=== PATIENT | male | born 1990 | race Caucasian/White ===

== ENCOUNTER 2021-08-04 11:27 | Emergency (ER) | payer SELFPAY ==
[2021-08-04 12:00] VITALS: BP 166/91; PULSE 96; RESP 16; TEMP 36.8; O2SAT 100; BMI 25.8
--- NOTE | 2021-08-04 12:00 | XR_ITS ---
PROCEDURE: XR RIBS RT 2V CLINICAL INDICATION: FALL COMPARISON: No exams were available for comparison FINDINGS: Frontal view of the chest shows no acute finding. Multiple views of the right ribs show no obvious displaced rib fracture or other significant anomaly. IMPRESSION: No acute findings. Dictated by: Vinny Carpio MD 08/04/2021 13:38 Vinny Carpio MD in [place] 08/04/2021 13:38
--- NOTE | 2021-08-04 12:00 | XR_ITS ---
PROCEDURE: XR LUMBAR SPINE 2-3V CLINICAL INDICATION: FALL COMPARISON: No exams were available for comparison FINDINGS: Brain minimal lumbar curvature convex left. Slight reversal of thoracolumbar lordosis. No acute fracture or dislocation. IMPRESSION: No acute findings. Dictated by: Vinny Carpio MD 08/04/2021 13:37 Vinny Carpio MD in [place] 08/04/2021 13:37
--- NOTE | 2021-08-04 12:46 | HMH.EDUTC ---
[facility] [place] Impression: Rib contusion Qualifiers: Encounter type: initial encounter Laterality: right Qualified Code(s): S20.211A - Contusion of right front wall of thorax, initial encounter Low back pain Qualifiers: Chronicity: unspecified Back pain laterality: right Sciatica presence: without sciatica Qualified Code(s): M54.50 - Low back pain, unspecified Disposition: Home, Self-Care Condition on Discharge: Good Instructions: Low Back Pain, DI for Low Back Pain, DI for Rib Contusion Additional Instructions: *Etodolac kavin 8 hours with meal as needed for pain/inflammation *Remember you had a Toradol shot in the clinic today, which is similar to Etodolac so do not start for the next 8 hours *Not additional anti-inflammatory like Ibuprofen motrin, aleve, advil with the above amount of Etodolac. You can still take Tylenol every 4 hours as needed if you need something else for pain *Ice 20 minutes every 2 hours for the first 48 hours after the initial injury followed by moist heat every 20 minutes 3-4 times a day to affected area *Muscle relaxer every 12 hours as needed for muscle spasms but remember, it WILL cause drowsiness You cannot take it and drive, operate machinery or care for small children. *Keep this area active, no movement leads to more stiffness, However take it easy and avoid heavy lifting pushing or pulling *Follow up with you family doctor if no improvement for further treatment Prescriptions: Etodolac 200 mg PO Q8HP PRN #20 cap PRN Reason: Moderate Pain Transmission Status: Received by [facility] #[id number] methylPREDNISolone [Medrol 4mg tab] 4 mg PO DIRECTED #21 tab Transmission Status: Received by [facility] #[id number] methocarbamoL [Methocarbamol] 750 mg PO BID PRN #10 tab PRN Reason: Muscle Spasm Transmission Status: Received by [facility] #[id number] Referrals: Provider,Referral, [Primary Care Provider] - As needed Time of Disposition: 13:43 Medical Decision Making - Cuate Inquiry Pt receiving controlled substance: No Cuate was queried for this patient: No Vital Signs: 08/04/21 12:00 08/04/21 14:18 Temperature 98.3 F 98.3 F Temperature Source Oral Pulse Rate 96 H Pulse Rate [Left] 96 H Respiratory Rate 16 16 Blood Pressure 166/91 H Blood Pressure [Right Arm] 166/91 H Blood Pressure Mean [Right Arm] 116 02 Sat by Pulse Oximetry 100 Orders (Tests/Meds): ED MEDICATIONS Discontinued Medications Generic Name Dose Route Start Last Admin Trade Name Tommy PRN Reason Stop Dose Admin Ketorolac Tromethamine 60 mg 08/04/21 13:41 08/04/21 13:49 Ketorolac 60mg/2ml Vial IM 08/04/21 13:42 60 mg ONCE ONE Administration Methylprednisolone Sodium Succinate 125 mg 08/04/21 13:41 08/04/21 13:49 Methylprednisolone Sod Succ 125mg Vial IM 08/04/21 13:42 125 mg ONCE ONE Administration - Radiology Data #1 Image(s): L-Spine Image Reviewed: Yes I have reviewed radiologist's interpretation No acute findings. #2 Image(s): Chest (with right ribs) Image Reviewed: Yes I have reviewed radiologist's interpretation No acute findings. [facility] [place] - General Stated complaint: AO fall 08/02 back pain Time Seen by Provider: 08/04/21 12:46 Mode of Arrival: Ambulatory Source of Information: Patient Limitations: No Limitations Description of Symptoms (Recalled from Triage Doc. by RN): pt states he fell down a step on 08/02. pt c/o of lower R sided back pain and lower R sided rib pain. HEENT Symptoms (Recalled from RN notes): No Resp Symptoms (Recalled from RN notes): No Skin Symptoms (Recalled from RN notes): No MS Symptoms (Recalled from RN notes): Yes Functional Status (Recalled from RN notes): na - History of Present Illness Provider Complaint: Patient state that on Tuesday he was walking down the steps when he slipped and fell and landed on his left side on the steps States that ever since he has been having pain
[2021-08-04 14:18] VITALS: BP 166/91; PULSE 96; RESP 16; TEMP 36.8
== END 2021-08-04 14:20 | disposition home or self-care (01) ==
PROVIDERS: Emergency Provider Nurse Practitioner
DX: S20.211A Contusion of right front wall of thorax, initial encounter (principal); M54.50 Low back pain, unspecified; W01.0XXA Fall on same level from slipping, tripping and stumbling without subsequent striking against object, initial encounter
CPT/HCPCS: 71100; 72100; 96372; 99202; G0463

== ENCOUNTER 2022-03-06 22:23 | Emergency (ER) | payer SELFPAY ==
--- NOTE | 2022-03-06 22:48 | HMH.EDGENADL ---
ED Disposition Clinical Impression: Viral syndrome Disposition: Home, Self-Care Condition on Discharge: Good Instructions: DI for Viral Syndrome Referrals: Provider,Referral, [Primary Care Provider] - - Critical Care Critical Care Time: No Attestation: On , the high probability of a clinically significant, sudden or life threatening deterioration of the following system(s) required my full and direct attention, intervention and personal management. The time I documented below is in addition to time spent performing reported procedures but includes the following listed in this critical care notation. Medical Decision Making - Medical Records Medical records reviewed: Yes: I reviewed the patient's medical records. - Cuate Inquiry Pt receiving controlled substance: No Vital Signs: 03/06/22 23:39 Temperature 98.7 F Temperature Source Oral Pulse Rate [Apical] 89 Respiratory Rate 18 Blood Pressure [Right Arm] 139/110 H Blood Pressure Mean [Right Arm] 119 Blood Pressure Source [Right Arm] Automatic Cuff Blood Pressure Position [Right Arm] Sitting 02 Sat by Pulse Oximetry 97 Oxygen Delivery Method Room Air Medical Decision Narrative: Patient is a 31-year-old healthy male presenting with a chief complaint of gastrointestinal symptoms which have now resolved. Differential diagnosis includes, but is not limited to, viral gastroenteritis, COVID-19, other viral syndrome. On initial evaluation, patient has normal vital signs. Is well-appearing. Family declined testing for COVID-19, influenza. Family is unvaccinated. Counseled on supportive care at home, advised to follow-up with primary care physician. General Adult HPI - General Stated complaint: chills, body aches, nauseous Time Seen by Provider: 03/06/22 22:45 - History of Present Illness HPI narrative: Juan Antonio is a 31-year-old male without significant medical history presenting for medical evaluation. On Tuesday, patient had abdominal cramping, nausea and vomiting but this is resolved. Currently, he is asymptomatic. and child have fever and are complaining of upper respiratory symptoms, nausea and vomiting. - Related Data Previous Rx's Medication Instructions Recorded Etodolac 200 mg PO Q8HP PRN #20 cap 08/04/21 methocarbamoL [Methocarbamol] 750 mg PO BID PRN #10 tab 08/04/21 methylPREDNISolone [Medrol 4mg 4 mg PO DIRECTED #21 tab 08/04/21 tab] Allergies Allergy/AdvReac Type Severity Reaction Status Date / Time No Known Allergies Allergy Verified 08/04/21 13:40 [facility] History - Hepatitis A Screen Attestation statement:: This patient has been screened for Hepatitis A risk factors. ROS Obtained: Yes Systems reviewed as appropriate & no additional complaints - Constitutional Constitutional: Denies fatigue, Denies fever(s), Denies malaise - Eyes Eyes: Denies blurry vision, Denies change in vision - ENT Ears, Nose, Mouth, and Throat: Denies nasal congestion, Denies sore throat - Cardiovascular Cardiovascular: Denies chest pain - Respiratory Respiratory: Denies shortness of breath - Gastrointestinal Gastrointestingal: Reports: cramping, nausea, vomiting. Denies: diarrhea - Genitourinary Male Genitourinary: Denies difficulty urinating - Musculoskeletal Musculoskeletal: Reports other (No injury or limb swelling ) - Integumentary/Breasts Skin/Breast: Reports rash (Family has flea infestation, complains of flea bites), Reports other - Neurologic Neurologic: Denies confusion, Denies focal weakness, Denies tingling/numbness/burning sensations Physical Exam - General General appearance: alert, in no apparent distress - Head Head exam: atraumatic, normocephalic - Eye Eye exam: Present: normal appearance, PERRL, EOMI - ENT ENT exam: Present: normal exam, normal oropharynx, mucous membranes moist - Neck Neck exam: Present: normal inspection, full ROM, trachea midline - Chest Ches
[2022-03-06 23:39] VITALS: BP 139/110; PULSE 89; RESP 18; TEMP 37.1; O2SAT 97; BMI 23.6
[2022-03-07 01:46] VITALS: BP 140/98; PULSE 90; RESP 18; TEMP 36.8; O2SAT 99
== END 2022-03-07 01:51 | disposition home or self-care (01) ==
PROVIDERS: Emergency Provider Emergency Medicine
DX: B34.9 Viral infection, unspecified (principal)
CPT/HCPCS: 99282